=== PATIENT | female | born 1960 | race Caucasian/White ===

== ENCOUNTER → 2019-10-07 09:59 | Outpatient (CLI) | payer BC, SELFPAY ==
--- NOTE | ~2019-10-07 | MMUS_ITS ---
EXAMINATION: MM diagnostic mammo unilat LT, US breast LT limited HISTORY: Left breast mass on screening mammogram TECHNIQUE: Additional 3-D tomosynthesis images of the left breast were performed and synthetic 2-D im ages were generated. CAD analysis was submitted and interpreted. High resolution limited left breast ultrasound was performed. COMPARISON: 09/12/2019, 08/04/2016, 07/28/2015 FINDINGS: MAMMOGRAPHIC FINDINGS: There is a persistent 5 mm obscured, equal density, oval mass in the middle third of the lower-outer breast at the 4:00 location 4 cm from the nipple. No suspicious associated calcification or integration architect ural distortion are identified. ULTRASOUND: There is a 4 mm cyst at the 3:00 location in the breast corresponding to the mammographic finding in question. In addition, there are cysts measuring 3 mm x 2 mm at the 3:00 location 4 cm from the nippl e and 3 mm x 2 mm near the areola. IMPRESSION: 1. No mammographic or sonographic evidence of malignancy. 2. Recommend routine screening mammography in one year. BI-RADS Category 2: Benign finding(s). Reviewed, dictated and finalized at location A. ORK DESIGNER IMPRESSION: 1. No mammographic or sonographic evidence of malignancy. 2. Recommend routine screening mammography in one year. BI-RADS Category 2: Benign finding(s).
== END ==
PROVIDERS: Visit Provider Obstetrics & Gynecology
DX: R92.8 Other abnormal and inconclusive findings on diagnostic imaging of breast (principal)
CPT/HCPCS: 76642; 77065

== ENCOUNTER 2020-10-27 14:01 | Outpatient (CLI) | payer BC, SELFPAY | END 2020-10-27 14:02 | disposition home or self-care (01) | LOC: ANHCOVIDVC 14:01 | PROVIDERS: PCP Family Medicine | DX: Z23 Encounter for immunization (principal) | CPT/HCPCS: 0001A; 91300 ==

== ENCOUNTER 2020-11-17 14:02 | Outpatient (CLI) | payer BC, SELFPAY | END 2020-11-17 14:03 | disposition home or self-care (01) | LOC: ANHCOVIDVC 14:03 | PROVIDERS: PCP Family Medicine | DX: Z23 Encounter for immunization (principal) | CPT/HCPCS: 0002A; 91300 ==

== ENCOUNTER 2021-06-15 01:48 | Day surgery (SDC) | payer BC, SELFPAY ==
[2021-05-27 14:03] VITALS: BMI 27.3
--- NOTE | 2021-06-14 10:30 | WPDANESEPPF ---
Anes - Initial Pre Proc Eval Procedure: Operation Date: 06/15/21 07:30 Proposed Procedures p Screening Colonoscopy - Obed Ibarra MD Date/Time: 06/14/21 10:30 Surgeon: Obed Ibarra MD Pre Op Diagnosis: neoplasm screening Patient Data Age: 60 Gender: F Height: 1.6 m Weight: 70 kg Allergies Allergy/AdvReac Type Severity Reaction Status Date / Time erythromycin base Allergy Unknown Unknown Verified 06/15/21 06:25 tramadol AdvReac Intermediate Confusion Verified 06/15/21 06:25 Home Medications Medication Instructions Recorded Confirmed Type buprenorphine 15 mcg/hour weekly 1 patch TRANSDERM WEEKLY 02/10/20 05/27/21 History transdermal patch hydrocodone 5 mg-acetaminophen 325 1 tablet PO Q6H PRN tablet 02/10/20 05/27/21 History mg tablet trazodone 100 mg tablet 100 mg PO QHS #90 tablet 01/28/21 05/27/21 Rx sertraline 50 mg tablet 50 mg PO DAILY #90 tablet 01/31/21 05/27/21 Rx rosuvastatin 10 mg tablet 10 mg PO QHS #90 tablet 05/04/21 05/27/21 Rx Patient hx anesthesia problems: none Family hx anesthesia problems: none Results Review: All pre-operative results and documents have been reviewed as part of the pre-operative evaluation. [facility] Past Medical History Medical History Chronic low back pain without sciatica Depression Endometriosis HSV-2 infection Hyperlipidemia Insomnia Osteochondropathy hip Osteopenia Recurrent herpes labialis Unspecified osteoarthritis, unspecified site Surgical History Surgical History History of bilateral carpal tunnel release 01/2021 - Right 02/2021 - Left History of hip replacement (~12/18/14) Right -2015 History of hip surgery labral repair b/l - 2011 on right, 2014 on left Family History Family History Mother Patient's mother is , Onset Age: 53 Family history of lung cancer Father Malignant neoplasm of prostate Family history of coronary artery disease Family history of renal cell carcinoma Other Family history of hypercholesterolemia Family history of thyroid disease Hypertension Social History Social History Smoking status: Never smoker Second hand tobacco smoke exposure: No Smoking end date: 08/20/90 Alcohol intake: never Substance use: never Substance use type: does not use Living arrangements: with family Gender identity (if verbalized by the patient): Female Spiritual care concerns: No Anes - Eval Final PreProcedure Day of Procedure 06/14/21 10:30 Patient weight: overweight Heart: regular rate and rhythm Lungs: clear to auscultation and normal air movement Airway: Mallampati scale class II Neurological: alert and oriented Last oral intake: >/= 8 hours ASA classification: II Emergent: no Anesthetic plan: proceed Anesthesia type and monitoring: general GIVS and standard monitoring Results Review: All pre-operative results and documents have been reviewed as part of the pre-operative evaluation. Informed Consent: The patient's anesthetic plan and its attendant risks and benefits were discussed with the patient/family/POA. Questions were solicited and answers provided to the satisfaction of the patient/family/POA.
[2021-06-15 06:26] VITALS: BP 148/87; PULSE 78; RESP 20; TEMP 36.3; O2SAT 98; BMI 27.5
[2021-06-15] MEDS: LACTATED RINGERS 1,000 ML 150 ML IV CONT (06:34)
--- NOTE | 2021-06-15 07:41 | WPDGICN ---
Assessment and Plan Assessment and plan (1) Encounter for screening colonoscopy: Code(s): Z12.11 - Encounter for screening for malignant neoplasm of colon Status: Acute Assessment and Plan: Patient appears to be at average risk for colon polyps. She presents for screening colonoscopy today. GI Consult Note Consult date/time: 06/15/21 07:41 HPI: Shahla Blair is a 60 year old female Presents for screening colonoscopy. Patient reports that her current weight appetite bowel movements are normal. She denies abdominal pain. She has had no bleeding. Her last colonoscopy was 12 or 13 years ago. Patient reports her current weight appetite bowel movements are normal. She denies abdominal pain. She has had no bleeding. Family history is noncontributory. She presents today for surveillance neoplasia screening exam. Review of Systems Review of Systems: All systems reviewed & are unremarkable except as noted in HPI and below PMFSH Past Medical History Medical History Chronic low back pain without sciatica Depression Endometriosis HSV-2 infection Hyperlipidemia Insomnia Osteochondropathy hip Osteopenia Recurrent herpes labialis Unspecified osteoarthritis, unspecified site Surgical History Surgical History History of bilateral carpal tunnel release 01/2021 - Right 02/2021 - Left History of hip replacement (~12/18/14) Right -2014 History of hip surgery labral repair b/l - 2011 on right, 2014 on left Family History Family History Mother Patient's mother is , Onset Age: 53 Family history of lung cancer Father Malignant neoplasm of prostate Family history of coronary artery disease Family history of renal cell carcinoma Other Family history of hypercholesterolemia Family history of thyroid disease Hypertension Social History Social History Smoking status: Never smoker Second hand tobacco smoke exposure: No Smoking end date: 08/20/90 Alcohol intake: never Substance use: never Substance use type: does not use Living arrangements: with family Gender identity (if verbalized by the patient): Female Spiritual care concerns: No Meds Home Medications and Allergies Home Medications Medication Instructions Recorded Confirmed Type buprenorphine 15 mcg/hour weekly 1 patch TRANSDERM WEEKLY 02/10/20 05/27/21 History transdermal patch hydrocodone 5 mg-acetaminophen 325 1 tablet PO Q6H PRN tablet 02/10/20 05/27/21 History mg tablet trazodone 100 mg tablet 100 mg PO QHS #90 tablet 01/28/21 05/27/21 Rx sertraline 50 mg tablet 50 mg PO DAILY #90 tablet 01/31/21 05/27/21 Rx rosuvastatin 10 mg tablet 10 mg PO QHS #90 tablet 05/04/21 05/27/21 Rx Allergies Allergy/AdvReac Type Severity Reaction Status Date / Time erythromycin base Allergy Unknown Unknown Verified 06/15/21 06:25 tramadol AdvReac Intermediate Confusion Verified 06/15/21 06:25 Vital Signs Vital Signs - 24 hr 06/15/21 06:26 Temperature 97.4 F L Pulse Rate 78 Respiratory Rate 20 Blood Pressure 148/87 H Pulse Oximetry 98 Exam Narrative: Physical exam reveals patient be alert. Vital signs stable. HEENT exam is unremarkable. Patient is anicteric. Lungs are clear to auscultation and to percussion. Heart is without murmur or extra sounds. Abdominal exam bowel sounds are present soft nontender with no organomegaly. Digital external rectal exam is normal.
[2021-06-15 07:45] VITALS: BP 125/83; PULSE 61; RESP 20; O2SAT 100
[2021-06-15 07:55] VITALS: BP 128/85; PULSE 58; RESP 18; O2SAT 100
[2021-06-15 08:05] VITALS: BP 133/81; PULSE 60; RESP 16; O2SAT 100
== END 2021-06-15 08:17 | disposition home or self-care (01) ==
PROVIDERS: PCP Family Medicine; Visit Provider Internal Medicine Gastroenterology
PROC: 0DJD8ZZ Inspection of Lower Intestinal Tract, Via Natural or Artificial Opening Endoscopic (ICD-10-PCS; CPT 45378; principal; 2021-06-15 07:30)
DX: Z12.11 Encounter for screening for malignant neoplasm of colon (principal); F32.9 Major depressive disorder, single episode, unspecified; N80.9 Endometriosis, unspecified; E78.5 Hyperlipidemia, unspecified; G47.00 Insomnia, unspecified; M19.90 Unspecified osteoarthritis, unspecified site; M93.959 Osteochondropathy, unspecified, unspecified thigh
CPT/HCPCS: 45378; J2704; J7120

== ENCOUNTER → 2021-06-17 13:22 | Outpatient (CLI) | payer BC, SELFPAY ==
--- NOTE | ~2021-06-17 | MM_ITS ---
EXAMINATION: MM screening flex BI w eduarda HISTORY: Screening mammogram TECHNIQUE: Craniocaudal and mediolateral oblique 3-D tomosynthesis images were obtained and synthetic 2-D images were generated. CAD analysis was submitted and interpreted. COMPARISON: 10/07/2019 diagnostic left mammogram and limited left breast ultrasound 09/08/2019, 08/04/2016 bilateral screening mammogram examinations BREAST PARENCHYMAL COMPOSITION: There are scattered areas of fibroglandular density. FINDINGS: Bilateral biopsy markers; history of bilateral benign breast biopsies. Stable approximately 6.7 mm circumscribed low-density opacity situated anteriorly in the lower outer right breast, not significantly changed since 08/04/2016. There is no evidence of suspicious mass, calcification, or architectural distortion to suggest malign allan in either breast. There has been no suspicious interval change. IMPRESSION: 1. No mammographic evidence of malignancy. 2. Recommend routine screening mammography in one year. BI-RADS Category 2: Benign finding(s). Reviewed, dictated and finalized at location A.
== END ==
PROVIDERS: PCP Family Medicine; Visit Provider Obstetrics & Gynecology
DX: Z12.31 Encounter for screening mammogram for malignant neoplasm of breast (principal)
CPT/HCPCS: 77063; 77067

== ENCOUNTER → 2021-08-16 13:17 | Outpatient (CLI) | payer BC, SELFPAY ==
--- NOTE | ~2021-08-16 | DEXA_ITS ---
Bone Density Report Name: DOUG NOGUEIRA Age: 61 Sex: Female Ethnicity: White Date of : 1960 Indication: postmenopausal; screening for osteoporosis; height loss; Referring Provider: Gwen Barnett Study: Bone densitometry was performed. Exam Date: August 16, 2021 Accession number: [id number] Bone Density: Region BMD T-score Z-score Classification AP Spine (L1-L4) 0.954 -0.8 0.8 Normal Femoral Neck (Left) 0.668 -1.6 -0.2 Osteopenia Total Hip (Left) 0.791 -1.2 -0.1 Osteopenia World Health Organization criteria for BMD impression classify patients as: Normal (T-score at or above -1.0), Osteopenia (T-score between -1.0 and -2.5), or Osteoporosis (T-score at or below -2.5). 10-year Fracture Risk(1): Major Osteoporotic Fracture 8.8% Hip Fracture 0.9% Reported Risk Factors: [place] (), Neck BMD=0.668, BMI=29.0 (1) FRAX(R) Version 3.08. Fracture probability calculated for an untreated patient. Fracture probability may be lower if the patient has received treatment. Clinical Information Provided by Patient: Has used the following medications: Vitamin D Patient maximum height was 63.0 Menopause Age: 51 Drinks caffeinated beverages Onset of menses at age 10 Number of children 2 Impression: The patient has low bone mass, based on the Left Femoral Neck T-score. The patient has an estimated ten-year risk of hip fracture of 0.9% and an estimated ten-year risk of major fracture of 8.8%, based on the WHO FRAX algorithm. Discussion: BONE DENSITY IS LOW AT ONE OR MORE SKELETAL SITES. This patient's lowest T-score is low at one or more skeletal sites. It meets the World Health Organization's (WHO) criteria for ?low bone mass? (T-score between -1.0 and -2.5). The patient's 10-year risk of fracture as calculated by FRAX is less than the threshold where pharmacological therapy is recommended by the National Osteoporosis Foundation (NOF). However, all treatment decisions require clinical judgment and consideration of individual patient factors, including patient preferences, comorbidities, previous drug use, risk factors not captured in the FRAX model (e.g., frailty, falls, vitamin D deficiency, increased bone turnover, interval significant decline in bone density) and possible under or overestimation of fracture risk by FRAX. The patient should follow a healthful lifestyle (good nutrition with adequate calcium and vitamin D, and appropriate weight-bearing exercise). Follow-Up: Consider repeating this study in 2 to 3 years to reassess this patient's status, or sooner if there is some new clinical indication. Reported by: JOHNNY on 08/16/2021 2:04:00 PM. Reviewed, dictated and finalized at location A. PATRIC
== END ==
PROVIDERS: PCP Family Medicine; Visit Provider Family Medicine
DX: Z78.0 Asymptomatic menopausal state (principal); M85.852 Other specified disorders of bone density and structure, left thigh
CPT/HCPCS: 77080

== ENCOUNTER → 2022-10-03 11:06 | Outpatient (CLI) | payer BC, SELFPAY ==
--- NOTE | ~2022-10-03 | MM_ITS ---
EXAMINATION: MM screening flex BI w eduarda HISTORY: Screening TECHNIQUE: Craniocaudal and mediolateral oblique 3-D tomosynthesis images were obtained and synthetic 2-D images were generated. CAD analysis was submitted and interpreted. COMPARISON: Comparison to multiple prior studies sequentially, with oldest reviewed study dated 04/2015. BREAST PARENCHYMAL COMPOSITION: FINDINGS: Stable benign-appearing mass lower outer quadrant of the right breast. There is no evidence of suspicious mass, calcification, or architectural distortion to suggest malignancy in either breas t. There has been no suspicious interval change. IMPRESSION: 1. No mammographic evidence of malignancy. 2. Recommend routine screening mammography in one year. BI-RADS Category 2: Benign finding(s). Reviewed, dictated and finalized at location A. 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
== END ==
PROVIDERS: PCP Family Medicine; Visit Provider Obstetrics & Gynecology
DX: Z12.31 Encounter for screening mammogram for malignant neoplasm of breast (principal)
CPT/HCPCS: 77063; 77067

== ENCOUNTER → 2022-11-14 12:06 | Outpatient (CLI) | payer BC, SELFPAY ==
--- NOTE | ~2022-11-14 | US_ITS ---
EXAMINATION: US venous doppler [facility] DATE: 11/14/2022 12:38 INDICATION: Left lower limb pain. TECHNIQUE: Grayscale ultrasound images without and with compression and Doppler ultrasound images of the left lower extremity veins were obtained. COMPARISON: None. FINDINGS: The visualized portions of left common femoral vein, profunda (deep) femoral vein, femoral vein, popl iteal vein, peroneal veins, posterior tibial veins, and greater saphenous vein outflow are patent. IMPRESSION: 1. No deep venous thrombosis. Reviewed, dictated and finalized at location A.
== END ==
PROVIDERS: PCP Family Medicine; Visit Provider Nurse Practitioner
DX: M79.662 Pain in left lower leg (principal)
CPT/HCPCS: 93971

== ENCOUNTER 2024-10-15 12:51 | Outpatient (CLI) | payer MEDICARE, SELFPAY ==
--- NOTE | ~2024-10-15 | MM_ITS ---
EXAMINATION: MM screening [facility] BI w eduarda HISTORY: Screening mammogram TECHNIQUE: Craniocaudal and mediolateral oblique 3-D tomosynthesis images were obtained and synthetic 2-D images were generated. CAD analysis was submitted and interpreted. COMPARISON: 10/03/2022, 06/17/2021, 10/07/2019 BREAST PARENCHYMAL COMPOSITION:Not Dense. There are scattered areas of fibroglandular density. FINDINGS: No suspicious mass, calcification, or architectural distortion are identified in either garcia ast to suggest malignancy. There has been no suspicious interval change. IMPRESSION: No mammographic evidence of malignancy. Recommend routine screening mammography in one year. BI-RADS Category 1: Negative Reviewed, dictated and finalized at location . 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
== END 2024-10-15 12:52 | disposition home or self-care (01) ==
LOC: MICIMG 12:53
PROVIDERS: PCP Family Medicine; Visit Provider Obstetrics & Gynecology
DX: Z12.31 Encounter for screening mammogram for malignant neoplasm of breast (principal)
CPT/HCPCS: 77063; 77067